=== PATIENT | female | born 1995 | race African-American/Black ===

== ENCOUNTER 2018-12-02 21:13 | Emergency (ER) | payer MEDICAID ==
[~2018-12-02] VITALS: Ht 170.2 cm; Wt 99.8 kg
[2018-12-02 21:34] VITALS: BP 116/73
[2018-12-02] MEDS ORDERED: KETOROLAC 30 MG/ML VIAL. IM ONE (22:00)
[2018-12-02] MEDS ORDERED: DEXAMETHASONE 4 MG TABLET PO ONE (22:00)
[2018-12-02 22:45] LABS: INFLUENZA A PATIENT NEGATIVE (NEGATIVE); INFLUENZA B PATIENT NEGATIVE (NEGATIVE)
[2018-12-02] MEDS ORDERED: PRED20TA PO (22:50)
--- NOTE | 2018-12-02 22:50 | PHYS DOC ---
Past Medical History Past Medical History: No Pertinent History Past Surgical History: No Surgical History Alcohol Use: Occasionally Drug Use: None Adult General Chief Complaint Chief Complaint: FLU SYMPTOM HPI HPI Patient is a 23 year old [f__sex] who presents with [] Review of Systems Review of Systems Constitutional: Denies fever or chills [] Eyes: Denies change in visual acuity, redness, or eye pain [] HENT: Denies nasal congestion or sore throat [] Respiratory: Denies cough or shortness of breath [] Cardiovascular: No additional information not addressed in HPI [] GI: Denies abdominal pain, nausea, vomiting, bloody stools or diarrhea [] : Denies dysuria or hematuria [] Musculoskeletal: Denies back pain or joint pain [] Integument: Denies rash or skin lesions [] Neurologic: Denies headache, focal weakness or sensory changes [] Endocrine: Denies polyuria or polydipsia [] All other systems were reviewed and found to be within normal limits, except as documented in this note. Current Medications Current Medications Current Medications Medications (Trade) Dose Ordered Sig/Lloyd Start Time Stop Time Status Last Admin Dose Admin Dexamethasone (Decadron) 10 mg 1X ONCE 12/02/18 22:00 12/02/18 22:03 DC 12/02/18 22:00 10 MG Ketorolac Tromethamine (Toradol 30mg Vial) 30 mg 1X ONCE 12/02/18 22:00 12/02/18 22:03 DC 12/02/18 22:00 30 MG Allergies Allergies Allergies Coded Allergies Type Severity Reaction Last Updated Verified No Known Drug Allergies 12/02/18 No Physical Exam Physical Exam Constitutional: Well developed, well nourished, no acute distress, non-toxic appearance. [] HENT: Normocephalic, atraumatic, bilateral external ears normal, oropharynx moist, no oral exudates, nose normal. [] Eyes: PERRLA, EOMI, conjunctiva normal, no discharge. [] Neck: Normal range of motion, no tenderness, supple, no stridor. [] Cardiovascular:Heart rate regular rhythm, no murmur [] Lungs & Thorax: Bilateral breath sounds clear to auscultation [] Abdomen: Bowel sounds normal, soft, no tenderness, no masses, no pulsatile masses. [] Skin: Warm, dry, no erythema, no rash. [] Back: No tenderness, no CVA tenderness. [] Extremities: No tenderness, no cyanosis, no clubbing, ROM intact, no edema. [] Neurologic: Alert and oriented X 3, normal motor function, normal sensory function, no focal deficits noted. [] Psychologic: Affect normal, judgement normal, mood normal. [] Current Patient Data Vital Signs Vital Signs Date Time Temp Pulse Resp B/P (MAP) Pulse Ox O2 Delivery O2 Flow Rate FiO2 12/02/18 21:34 99.7 110 16 116/73 (87) 97 Room Air 99.7 Lab Values Laboratory Tests Test 12/02/18 21:53 Influenza Type A Antigen Negative (NEGATIVE) Influenza Type B Antigen Negative (NEGATIVE) EKG EKG [] Radiology/Procedures Radiology/Procedures [] Course & Med Decision Making Course & Med Decision Making Pertinent Labs and Imaging studies reviewed. (See chart for details) [] Dragon Disclaimer Dragon Disclaimer This electronic medical record was generated, in whole or in part, using a voice recognition dictation system. Departure Departure Impression: Primary Impression: Flu-like symptoms Disposition: 01 HOME, SELF-CARE Condition: STABLE Referrals: UNKNOWN PCP NAME (PCP) Patient Instructions: Viral Syndrome Scripts Prednisone (PREDNISONE) 20 Mg Tablet 2 TAB PO DAILY, #8 TAB Start this medication tomorrow, Thursday12/03/18 Prov: BEBETO HENDRICKSON DO 12/02/18 BEBETO HENDRICKSON DO Dec 02, 2018 22:50
== END 2018-12-02 23:15 | disposition home or self-care (01) ==
LOC: ER 21:13
DX: M79.10 Myalgia, unspecified site (principal); J02.9 Acute pharyngitis, unspecified; R53.1 Weakness; M54.9 Dorsalgia, unspecified
CPT/HCPCS: 87804; 96372; 99283; J1885; J8540

== ENCOUNTER 2020-03-20 17:19 | Emergency (ER) | payer MEDICAID ==
[~2020-03-20] VITALS: Ht 170.2 cm; Wt 90.9 kg
[~2020-03-20 17:19] MED LIST: PRED20TA PO
[2020-03-20 17:39] VITALS: BP 111/56
--- NOTE | 2020-03-20 19:15 | RAD ---
Examination: FOOT RIGHT 3V History: Reason: 5th toe pain after light fixture fell on foot / Spl. Instructions: / History: Comparison/Correlation: None Findings: 3 images of the right foot were obtained. Longitudinal lucency involves the fifth digit distal phalanx and appears to extend intra-articular. Transverse fracture of the middle phalanx is present without displacement. Midfoot and hindfoot are unremarkable. Impression: Fifth digit middle and distal phalangeal nondisplaced fractures. Electronically signed by: Adam Garcia MD (03/20/2020 7:12 PM) [facility]
[2020-03-20] MEDS ORDERED: HYDR-2761 PO (19:36)
--- NOTE | 2020-03-20 19:36 | PHYS DOC ---
Past Medical History Past Medical History: No Pertinent History Past Surgical History: No Surgical History Smoking Status: Never Smoker Alcohol Use: Occasionally Drug Use: None General Adult EDM: Chief Complaint: TOE PROBLEM HPI: HPI: Patient is a 24 year old AA female who presents to the emergency department with complaints of right fifth toe pain, erythema, and swelling after she dropped a light fixture onto her foot yesterday morning. She denies any numbness, tingling, or weakness of the affected extremity. She currently rates her pain a 7 out of 10 on the pain scale, patient states she has been taking ibuprofen and applying ice at home without any relief of her pain. She denies any radiation of the pain, the pain increases with weightbearing and ambulation. Review of Systems: Review of Systems: Constitutional: Denies fever or chills. [] Eyes: Denies change in visual acuity. [] HENT: Denies nasal congestion or sore throat. [] Respiratory: Denies cough or shortness of breath. [] Cardiovascular: Denies chest pain or edema. [] GI: Denies abdominal pain, nausea, vomiting, bloody stools or diarrhea. [] : Denies dysuria. [] Musculoskeletal: Denies back pain or joint pain. [] Integument: Denies rash. [] Neurologic: Denies headache, focal weakness or sensory changes. [] Endocrine: Denies polyuria or polydipsia. [] Lymphatic: Denies swollen glands. [] Psychiatric: Denies depression or anxiety. [] Heart Score: Risk Factors: Risk Factors: DM, Current or recent (<one month) smoker, HTN, HLP, family history of CAD, obesity. Risk Scores: Score 0 - 3: 2.5% MACE over next 6 weeks - Discharge Home Score 4 - 6: 20.3% MACE over next 6 weeks - Admit for Clinical Observation Score 7 - 10: 72.7% MACE over next 6 weeks - Early Invasive Strategies Allergies: Allergies: Allergies Coded Allergies Type Severity Reaction Last Updated Verified No Known Drug Allergies 12/02/18 No Physical Exam: PE: Constitutional: Well developed, well nourished, no acute distress, non-toxic appearance, obese. [] HENT: Normocephalic, atraumatic, bilateral external ears normal, nose normal. [] Eyes: PERRLA, EOMI, conjunctiva normal, no discharge. [] Neck: Normal range of motion, no stridor. [] Cardiovascular:Heart rate regular rhythm Lungs & Thorax: Respirations even and unlabored, no retractions, no respiratory distress Skin: Warm, dry; redness and bruising noted to right fifth toe, no streaking no warmth Extremities: Right fifth toe, diffuse TTP, no crepitus, no obvious deformity, 2+ pedal pulse, no cyanosis, 1+ edema, ROM limited due to pain Neurologic: Alert and oriented X 3, no focal deficits noted. [] Psychologic: Affect normal, judgement normal, mood normal. [] Current Patient Data: Vital Signs: Vital Signs Date Time Temp Pulse Resp B/P (MAP) Pulse Ox O2 Delivery O2 Flow Rate FiO2 03/20/20 17:39 98.1 61 20 111/56 (74) 98 Room Air 98.1 EKG: EKG: [] Radiology/Procedures: Radiology/Procedures: PROCEDURE: FOOT RIGHT 3V Examination: FOOT RIGHT 3V History: Reason: 5th toe pain after light fixture fell on foot / Spl. Instructions: / History: Comparison/Correlation: None Findings: 3 images of the right foot were obtained. Longitudinal lucency involves the fifth digit distal phalanx and appears to extend intra-articular. Transverse fracture of the middle phalanx is present without displacement. Midfoot and hindfoot are unremarkable. Impression: Fifth digit middle and distal phalangeal nondisplaced fractures. [] Course & Med Decision Making: Course & Med Decision Making Pertinent Labs and Imaging studies reviewed. (See chart for details) [] Dragon Disclaimer: Dragon Disclaimer: This electronic medical record was generated, in whole or in part, using a voice recognition dictation system. Departure Departure Impression: Primary Impression: Closed fracture of fifth toe of right foot with nonunion Disposition: 01 HOME, SELF-CARE Condition: STABLE Referrals: NO PCP (PCP) PHIL SHAFFER MD Patient Instructions: Dale Taping of Toes, Toe Fracture, [id number] Additional Instructions: Fill prescription(s) and use as directed. Recommend application of ice, elevation, and rest of affected extremity. Dale tape your fifth toe to your fourth toe as done in the emergency department. Follow-up with your primary care doctor or Dr. Shaffer for repeat evaluation, return to the ER if your symptoms worsen. Scripts Hydrocodone Bit/Acetaminophen (HYDROCODONE-APAP 5-325 ) 1 Tab Tablet 1 TAB PO PRN Q6HRS PRN for PAIN for 2 Days, #4 TAB 0 Refills Prov: RAJNI BURTON APRN 03/20/20 Justicifation of Admission Dx: Justifications for Admission: Justification of Admission Dx: N/A RAJNI BURTON APRN Mar 20, 2020 19:36
== END 2020-03-20 19:50 | disposition home or self-care (01) ==
LOC: ER 17:19
DX: S92.524A Nondisplaced fracture of middle phalanx of right lesser toe(s), initial encounter for closed fracture (principal); R60.0 Localized edema; L53.9 Erythematous condition, unspecified; W20.8XXA Other cause of strike by thrown, projected or falling object, initial encounter; Y93.89 Activity, other specified; Y92.89 Other specified places as the place of occurrence of the external cause; Y99.8 Other external cause status
CPT/HCPCS: 73630; 99283